=== PATIENT | male | born 1945 | race Caucasian/White ===

== ENCOUNTER 2021-06-08 12:46 | Inpatient (IN) | payer MEDICARE ==
[2021-06-08] MEDS ORDERED: ACETAMINOPHEN TAB 500 MG TAB PO STA (14:25)
[2021-06-08] MEDS ORDERED: SODIUM CHLORIDE 0.9% 1,000 ML IV STA (14:28)
--- NOTE | 2021-06-08 14:36 | ED ---
General Adult HPI - General Source: patient, RN notes reviewed Mode of arrival: wheelchair Limitations: no limitations <Candace Perez - Last Filed: 06/08/21 20:19> <Paty Diggs - Last Filed: 06/15/21 01:23> - General Chief complaint: Shortness of Breath Stated complaint: Covid +, low oxygen level Time Seen by Provider: 06/08/21 14:15 - History of Present Illness Initial comments: 75-year-old male presents to the emergency department accompanied by his spouse for evaluation of fever, cough, and fatigue for the past week. Spouse states their entire household has had Covid this past month. Patient is not vaccinated and has not been tested. States he did not take anything to treat his fever prior to arrival. Reports increasing shortness of breath with activity. Also complains of decreased appetite and mild headache. Denies chest pain, abdominal pain, nausea, vomiting, diarrhea, dysuria, and hematuria. (Candace Perez) - Related Data Home Medications Medication Instructions Recorded Confirmed Ibuprofen [Motrin Ib] 800 mg PO Q8H PRN 06/08/21 06/08/21 Previous Rx's Medication Instructions Recorded Albuterol Inhaler [Ventolin Hfa 2 puff INHALATION RT-QID #1 gm 06/13/21 Inhaler] Ascorbic Acid [Vitamin C] 500 mg PO BID #60 tab 06/13/21 Budesonide/Formoterol Fumarate 1 puff INHALATION BID #10.2 gm 06/13/21 [Symbicort 160-4.5 Mcg Inhaler] Cholecalciferol [Vitamin D3 (25 100 mcg PO DAILY #120 tablet 06/13/21 Mcg = 1000 Iu)] Zinc Sulfate [Orazinc] 220 mg PO DAILY #30 cap 06/13/21 predniSONE 10 mg PO DAILY #30 tab 06/13/21 Allergies Allergy/AdvReac Type Severity Reaction Status Date / Time bee venom protein (honey bee) Allergy Anaphylaxis Verified 06/08/21 15:54 Penicillins Allergy Rash/Hives Verified 06/08/21 15:54 Review of Systems ROS Other: All systems not noted in ROS Statement are negative. <Candace Perez - Last Filed: 06/08/21 20:19> ROS Other: All systems not noted in ROS Statement are negative. <Paty Diggs - Last Filed: 06/15/21 01:23> ROS Statement: Those systems with pertinent positive or pertinent negative responses have been documented in the HPI. Past Medical History Past Medical History: Diabetes Mellitus History of Any Multi-Drug Resistant Organisms: None Reported Past Surgical History: No Surgical Hx Reported Past Psychological History: No Psychological Hx Reported Smoking Status: Never smoker Past Alcohol Use History: None Reported Past Drug Use History: None Reported <AnaCandace - Last Filed: 06/08/21 20:19> General Exam Limitations: no limitations General appearance: alert, other (Well-developed, well-nourished male presents to the emergency emergency Department in moderate distress. Initial temperature 1-1.1, recheck 102.0, pulse 103, respirations 20, blood pressure 149/79, pulse ox 92% on room air, placed on 2 L improved to 94%.) Eye exam: Present: normal appearance, PERRL, EOMI. Absent: scleral icterus, conjunctival injection, periorbital swelling ENT exam: Present: mucous membranes dry, TM's normal bilaterally Neck exam: Present: normal inspection. Absent: tenderness, meningismus, lymphadenopathy Respiratory exam: Present: normal lung sounds bilaterally. Absent: respiratory distress, wheezes, rales, rhonchi, stridor Cardiovascular Exam: Present: regular rate, tachycardia, normal heart sounds GI/Abdominal exam: Present: soft, normal bowel sounds. Absent: distended, tenderness, guarding, rebound, rigid Extremities exam: Present: normal inspection, full ROM, normal capillary refill. Absent: tenderness, pedal edema, joint swelling, calf tenderness Neurological exam: Present: alert, oriented X3 Psychiatric exam: Present: flat affect Skin exam: Present: dry, intact, other (Skin very warm to touch and face is flus hed) <ChaijasperCandace - Last Filed: 06/08/21 20:19> Course <Candace Perez - Last Filed: 06/08/21 20:19> Vital Signs 06/08/21 06/08/21 06/08/21 12:57 15:22 16:09 Temperature 101.1 F H 100.5 F H Pulse Rate 103 H 87 Pulse Rate [ 105 H Electronic Induction Hardener ] Pulse Rate [ Pulse Oximetery ] Respiratory 20 20 20 Rate Blood Pressure 149/79 120/69 Blood Pressure [Left Arm] O2 Sat by Pulse 92 L 95 Oximetry 06/08/21 06/08/21 06/08/21 20:00 21:09 21:12 Temperature Pulse Rate 92 92 Pulse Rate [ 126 H Electronic Induction Hardener ] Pulse Rate [ Pulse Oximetery ] Respiratory 18 18 18 Rate Blood Pressure 127/88 130/70 Blood Pressure [Left Arm] O2 Sat by Pulse 98 96 Oximetry 06/08/21 06/08/21 06/08/21 21:53 21:57 22:00 Temperature 98.6 F Pulse Rate 84 Pulse Rate [ 100 126 H Electronic Induction Hardener ] Pulse Rate [ Pulse Oximetery ] Respiratory 18 Rate Blood Pressure 135/71 Blood Pressure 135/71 159/91 [Left Arm] O2 Sat by Pulse 95 94 L 95 Oximetry 06/09/21 06/09/21 06/09/21 00:41 09:03 09:30 Temperature Pulse Rate 96 Pulse Rate [ 88 Electronic Induction Hardener ] Pulse Rate [ Pulse Oximetery ] Respiratory 18 20 Rate Blood Pressure 135/76 Blood Pressure 110/70 [Left Arm] O2 Sat by Pulse 97 94 L 94 L Oximetry 06/09/21 06/09/21 06/09/21 12:56 14:00 18:00 Temperature Pulse Rate Pulse Rate [ Electronic Induction Hardener ] Pulse Rate [ 93 Pulse Oximetery ] Respiratory 18 Rate Blood Pressure Blood Pressure 138/80 [Left Arm] O2 Sat by Pulse 93 L 93 L 93 L Oximetry 06/09/21 06/09/21 20:00 20:47 Temperature Pulse Rate 95 Pulse Rate [ Electronic Induction Hardener ] Pulse Rate [ 80 Pulse Oximetery ] Respiratory 18 18 Rate Blood Pressure 145/73 Blood Pressure [Left Arm] O2 Sat by Pulse 92 L Oximetry - Reevaluation(s) Reevaluation #1: 06/08/21 15:00 Oral temp 101.2. Patient denies difficulty breathing or shortness of breath, but continues to feel fatigued and is lacking appetite. Oxygen at 2 L via nasal cannula required to maintain sat above 93%. 06/08/21 16:18 Discussed plan of care with patient and spouse, they are agreeable to, and prefer, admission. 06/08/21 16:[address] Salinas who agrees to accept admission of this patient. (Candace Perez) Medical Decision Making - Lab Data Result diagrams: 06/08/21 14:55 06/08/21 14:55 - EKG Data EKG shows normal: sinus rhythm Rate: normal - Radiology Data Radiology results: report reviewed, image reviewed <Candace Perez - Last Filed: 06/08/21 20:19> - Lab Data Result diagrams: 06/09/21 07:07 06/09/21 07:07 <Paty Diggs - Last Filed: 06/15/21 01:23> - Medical Decision Making 75-year-old male presents to the emergency department for evaluation of fever, cough, and fatigue post-covid exposure. Upon exam, patient is ill-appearing and requires 2 L of oxygen to sustain saturation above 93%. Patient is febrile and fatigued; he is unvaccinated. Patient was given Tylenol for fever and IV fluids for hydration; Decadron and albuterol inhaler also administered the emergency department with mild improvement. Laboratory studies were reviewed. Covid test was positive. Chest x-ray shows multifocal and confluent mid to lower lung opacities consistent with COVID-19 infection are present. Results were reviewed with patient and spouse; discussed plan of care including admission versus discharge home. Patient and spouse agree to admission. This patient's case was discussed with my attending Dr. Diggs. Spoke with Dr. Salinas who agrees to accept this patient. (Candace Perez) I was available for consultation in the emergency department. The history and physical exam were done by the midlevel provider. I was consulted for this patients care. I reviewed the case with the midlevel provider and based on their presentation of the patient, I agree with the assessment, medical decision making and plan of care as documented. Chart was dictated using [employer] dictation software. Attempts were made to correct any dictation errors however some typographical errors may persist. (Paty Rogers) - Lab Data Lab Results 06/08/21 06/08/21 06/08/21 Range/Units 14:55 14:55 14:55 WBC 2.8 L (3.8-10.6) k/uL RBC 5.68 (4.30-5.90) m/uL Hgb 16.3 (13.0-17.5) gm/dL Hct 48.3 (39.0-53.0) % MCV 85.0 (80.0-100.0) fL MCH 28.7 (25.0-35.0) pg MCHC 33.8 (31.0-37.0) g/dL RDW 13.0 (11.5-15.5) % Plt Count 142 L (150-450) k/uL MPV 7.6 Neutrophils % 70 % Lymphocytes % 20 % Monocytes % 7 % Eosinophils % 0 % Basophils % 1 % Neutrophils # 2.0 (1.3-7.7) k/uL Lymphocytes # 0.6 L (1.0-4.8) k/uL Monocytes # 0.2 (0-1.0) k/uL Eosinophils # 0.0 (0-0.7) k/uL Basophils # 0.0 (0-0.2) k/uL PT 10.4 (9.0-12.0) sec INR 1.0 (<1.2) APTT 27.3 (22.0-30.0) sec Sodium 133 L (137-145) mmol/L Potassium 4.4 (3.5-5.1) mmol/L Chloride 99 (98-107) mmol/L Carbon Dioxide 24 (22-30) mmol/L Anion Gap 10 mmol/L BUN 20 (9-20) mg/dL Creatinine 0.98 (0.66-1.25) mg/dL Est GFR (CKD-EPI)AfAm 89 (>60 ml/min/1.73 sqM) Est GFR (CKD-EPI)NonAf 77 (>60 ml/min/1.73 sqM) Glucose 115 H (74-99) mg/dL Plasma Lactic Acid Rosendo (0.7-2.0) mmol/L Calcium 8.8 (8.4-10.2) mg/dL Magnesium 2.2 (1.6-2.3) mg/dL Total Bilirubin 1.2 (0.2-1.3) mg/dL AST 53 (17-59) U/L ALT 45 (4-49) U/L Alkaline Phosphatase 61 (38-126) U/L Troponin I (0.000-0.034) ng/mL Total Protein 6.6 (6.3-8.2) g/dL Albumin 3.7 (3.5-5.0) g/dL Coronavirus (PCR) (Not Detectd) 06/08/21 06/08/2121 Range/Units 14:55 14:55 14:55 WBC (3.8-10.6) k/uL RBC (4.30-5.90) m/uL Hgb (13.0-17.5) gm/dL Hct (39.0-53.0) % MCV (80.0-100.0) fL MCH (25.0-35.0) pg MCHC (31.0-37.0) g/dL RDW (11.5-15.5) % Plt Count (150-450) k/uL MPV Neutrophils % % Lymphocytes % % Monocytes % % Eosinophils % % Basophils % % Neutrophils # (1.3-7.7) k/uL Lymphocytes # (1.0-4.8) k/uL Monocytes # (0-1.0) k/uL Eosinophils # (0-0.7) k/uL Basophils # (0-0.2) k/uL PT (9.0-12.0) sec INR (<1.2) APTT (22.0-30.0) sec Sodium (137-145) mmol/L Potassium (3.5-5.1) mmol/L Chloride (98-107) mmol/L Carbon Dioxide (22-30) mmol/L Anion Gap mmol/L BUN (9-20) mg/dL Creatinine (0.66-1.25) mg/dL Est GFR (CKD-EPI)AfAm (>60 ml/min/1.73 sqM) Est GFR (CKD-EPI)NonAf (>60 ml/min/1.73 sqM) Glucose (74-99) mg/dL Plasma Lactic Acid Rosendo 1.7 (0.7-2.0) mmol/L Calcium (8.4-10.2) mg/dL Magnesium (1.6-2.3) mg/dL Total Bilirubin (0.2-1.3) mg/dL AST (17-59) U/L ALT (4-49) U/L Alkaline Phosphatase (38-126) U/L Troponin I 0.019 (0.000-0.034) ng/mL Total Protein (6.3-8.2) g/dL Albumin (3.5-5.0) g/dL Coronavirus (PCR) Detected A (Not Detectd) - EKG Data EKG Comments: EKG is obtained at 1451 and shows normal sinus rhythm with left axis deviation. Ventricular rate 96, NC interval 146, QRS duration 84, QT/QTC 354/447. (Candace Perez) - Radiology Data Chest x-ray was obtained. Report was reviewed in its entirety. Impression per Dr. Goodrich shows multifocal and confluent mid to lower lung opacities consistent with COVID-19 infection are present. (Candace Perez) Disposition Decision Date: 06/08/21 Decision Time: 16:25 <Candace Perez - Last Filed: 06/08/21 20:19> <Paty Diggs - Last Filed: 06/15/21 01:23> Clinical Impression: COVID-19, Fever, Hypoxia Disposition: ADMITTED IP TO THIS HOSP
[2021-06-08 15:23] LABS: Basophils % (A) 1 %; Eosinophils % (A) 0 %; HCT 48.3 % (39.0-53.0); HGB 16.3 gm/dL (13.0-17.5); Lymphocytes # (A) 0.6 k/uL (1.0-4.8); Lymphocytes % (A) 20 %; MCH 28.7 pg (25.0-35.0); MCHC 33.8 g/dL (31.0-37.0); Mean Platelet Volume 7.6; Monocytes # (A) 0.2 k/uL (0-1.0); Monocytes % (A) 7 %; Neutrophils % (A) 70 %; Platelet Count 142 k/uL (150-450); RBC 5.68 m/uL (4.30-5.90); WBC 2.8 k/uL (3.8-10.6)
--- NOTE | 2021-06-08 15:29 | XR ---
EXAMINATION TYPE: XR chest 1V portable DATE OF EXAM: 06/08/2021 COMPARISON: NONE HISTORY: Cough, weakness, and hypoxia. TECHNIQUE: Single AP portable frontal upright view of the chest is obtained. FINDINGS: Patient is rotated to the left. There are multifocal and confluent opacities in the mid to lower lungs bilaterally. The cardiac silhouette size is upper limits of normal. The osseous struct ures are demineralized. IMPRESSION: Multifocal and confluent mid to lower lung opacities consistent with covid-19 infection a re present.
[2021-06-08 15:32] LABS: Albumin 3.7 g/dL (3.5-5.0); Calcium 8.8 mg/dL (8.4-10.2); Magnesium 2.2 mg/dL (1.6-2.3); Potassium 4.4 mmol/L (3.5-5.1); Total Bilirubin 1.2 mg/dL (0.2-1.3); Total Protein 6.6 g/dL (6.3-8.2)
[2021-06-08 15:38] LABS: Partial Thromboplastin Time 27.3 sec (22.0-30.0); Prothrombin Time 10.4 sec (9.0-12.0)
[2021-06-08] MEDS ORDERED: ALBUTEROL HFA INHALER INHALATION STA (16:17)
[2021-06-08] MEDS ORDERED: DEXAMETHASONE SOD PHOSPHATE 10 MG/ML 1 ML VIAL IVP STA (16:17)
[2021-06-08] MEDS ORDERED: ACETAMINOPHEN TAB 325 MG TAB PO PRN (16:25)
[2021-06-08] MEDS ORDERED: IBUPROFEN 400 MG TAB PO PRN (16:25)
[2021-06-08] MEDS ORDERED: SODIUM CHLORIDE 0.9% 1,000 ML IV SCH (16:30)
[2021-06-08] MEDS ORDERED: MAG HYDROX/AL HYDROX/SIMETH 30 ML CUP PO PRN (17:02)
[2021-06-08] MEDS ORDERED: CALCIUM CARBONATE 500 MG CHEWABLE PO PRN (17:02)
[2021-06-08] MEDS ORDERED: NALOXONE 0.4 MG/ML 1 ML VIAL IV PRN (17:02)
[2021-06-08] MEDS ORDERED: LOPERAMIDE 2 MG CAP PO PRN (17:02)
[2021-06-08] MEDS ORDERED: ONDANSETRON 4 MG/2 ML VIAL IVP PRN (17:02)
[2021-06-08] MEDS ORDERED: LACTULOSE 20 GM/30 ML CUP PO PRN (17:02)
[2021-06-08] MEDS ORDERED: ALPRAZolam 0.25 MG TAB PO PRN (17:02)
[2021-06-08] MEDS ORDERED: DEXTROSE 5%-0.45% NACL 1,000 ML IV ONE (17:13)
--- NOTE | 2021-06-08 17:14 | P.HPIM ---
History of Present Illness H&P Date: 06/08/21 Chief Complaint: Short of breath This is a pleasant 75-year-old patient who follows with Dr. Berg. Patient a prior history of diabetes hypertension as lost over 100 pounds. Doesn't take any more medications. Patient's had COVID and recovered about 20 days ago. Patient for 10 days started having nausea cough slight phlegm. Fevers. No headache no diarrhea. Denies body ache. Poor appetite. Loss of smell and taste. Patient become so weak and started to fall. Very poor appetite. She has not taken the COVID vaccine. Review of systems: GEN.: Tired, fever poor appetite EYES: None HEENT: None NECK: None RESPIRATORY: As above CARDIOVASCULAR: None GASTROINTESTINAL: None GENITOURINARY: None MUSCULOSKELETAL: Muscle aches LYMPHATICS: None HEMATOLOGICAL: None PSYCHIATRY: None NEUROLOGICAL: None Past medical history to include: Diabetes, hypertension, obesity. Corrected Social history: Patient smoked for about 25 years stopped about 30 years ago. 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 Family history: Reviewed, noncontributory to presentation Physical examination: VITAL SIGNS: 101.1, 103, 20, 1 49 x 79, 92% room air on presentation GENERAL: BMI 28.9, laying in bed, awake, tired. EYES: Pupils equal. Conjunctiva normal. HEENT: External appearance of nose and ears normal, oral cavity grossly normal. NECK: JVD not raised; masses not palpable. HEART: First and second heart sounds are normal; no edema. LUNGS: Respiratory rate increased, decreased breaths on some coarse crackles. ABDOMEN: Soft, nontender, liver spleen not palpable, no masses palpable. PSYCH: [Alert and oriented x3; mood and affect tired l. NEUROLOGICAL: Cranial nerves grossly intact; no facial asymmetry, power and sensation grossly intact. LYMPHATICS: No lymph nodes palpable in the axilla and neck INVESTIGATIONS, reviewed in the clinical context: White count 2.8 hemoglobin 16.3 platelets 142 lymphocytes 0.6 sodium 133 potassi um 4.4 BUN 20 creatinine 0.98 Coronavirus [PCR]: Detected EKG tracing personally reviewed by me-normal sinus rhythm, 96 Chest x-ray film personally reviewed by me-[portable, poor inspiration]: Possibl e infiltrates Assessment and plan: -Acute COVID 19 pneumonitis. Symptoms the present from about 10 days. Nonvaccinated against COVID 19. Patient's at the COVID 19. Pulse ox 92% room air. Dexamethasone 6 mg, vitamin C, vitamin D, zinc. Subcu Lovenox. -Sepsis from COVID 19 pneumonitis IV fluids -Acute medical debility/asthenia from decreased oral intake and dehydration Fall precautions. IV fluids. -Bicytopenia from COVID 19 pneumonitis [low white count, low platelets] Follow CBC -Anosmia, Ageusia from COVID 19 Full liquid diet -Dehydration from decreased fluid intake IV fluids Dexamethasone, vitamin C, vitamin D, zinc. Subcu Lovenox. D5 0.45 at 150 mL an hour. Care was discussed with the patient and at the bedside. Given the complexity and severity of patient's condition expect the patient to be in the hospital at least for 2 overnights Past Medical History Past Medical History: Diabetes Mellitus History of Any Multi-Drug Resistant Organisms: None Reported Past Surgical History: No Surgical Hx Reported Past Psychological History: No Psychological Hx Reported Smoking Status: Never smoker Past Alcohol Use History: None Reported Past Drug Use History: None Reported Medications and Allergies Home Medications Medication Instructions Recorded Confirmed Type Acetaminophen Tab [Tylenol Tab] 1,000 mg PO Q6HR PRN 06/08/21 06/08/21 History Ibuprofen [Motrin Ib] 800 mg PO Q8H PRN 06/08/21 06/08/21 History Allergies Allergy/AdvReac Type Severity Reaction Status Date / Time bee venom protein (honey bee) Allergy Anaphylaxis Verified 06/08/21 15:54 Penicillins Allergy Rash/Hives Verified 06/08/21 15:54 Physical Exam Vitals: Vital Signs Temp Pulse Pulse Resp BP Pulse Ox 06/08/21 16:09 100.5 F H 87 20 120/69 95 06/08/21 15:22 105 H 20 06/08/21 12:57 101.1 F H 103 H 20 149/79 92 L Intake and Output 06/08/21 06/08/21 06/08/21 06:59 14:59 22:59 Other: Weight 86.183 kg Results CBC & Chem 7: 06/08/21 14:55 06/08/21 14:55 Labs: Abnormal Lab Results - Last 24 Hours (Table) 06/08/21 06/08/21 06/08/21 Range/Units 14:55 14:55 14:55 WBC 2.8 L (3.8-10.6) k/uL Plt Count 142 L (150-450) k/uL Lymphocytes # 0.6 L (1.0-4.8) k/uL Sodium 133 L (137-145) mmol/L Glucose 115 H (74-99) mg/dL Coronavirus (PCR) Detected A (Not Detectd)
[2021-06-08] MEDS: CHOLECALCIFEROL 25 MCG (1000 IU) TABLET PO SCH (19:46)
[2021-06-08] MEDS ORDERED: MELATONIN 3 MG TABLET PO PRN (21:00)
[2021-06-08] MEDS: ALBUTEROL HFA INHALER INHALATION SCH (21:27)
[2021-06-09 07:41] LABS: African American GFR (CKD) >90 (>60 ml/min/1.73 sqM); Anion Gap 10 mmol/L; Blood Urea Nitrogen 18 mg/dL (9-20); C Reactive Protein 7.5 mg/dL (<1.0); Carbon Dioxide 25 mmol/L (22-30); Chloride 101 mmol/L (98-107); Glucose 165 mg/dL (74-99); Non-African American GFR(CKD) 87 (>60 ml/min/1.73 sqM); Potassium 4.5 mmol/L (3.5-5.1); Sodium 136 mmol/L (137-145)
[2021-06-09] MEDS ORDERED: DEXAMETHASONE SOD PHOSPHATE 10 MG/ML 1 ML VIAL IVP SCH (09:00)
[2021-06-09] MEDS: ALBUTEROL HFA INHALER INHALATION SCH ×4 (09:02→19:45)
[2021-06-09] MEDS: CHOLECALCIFEROL 25 MCG (1000 IU) TABLET PO SCH (09:27)
[2021-06-09] MEDS: dexAMETHasone 2 MG TAB PO SCH (09:27)
[2021-06-09 10:36] LABS: HCT 51.2 % (39.6-50.0); MCH 28.4 pg (27.0-32.0); MCHC 33.2 g/dL (32.0-37.0); MCV 85.6 fL (80.0-97.0); Mean Platelet Volume 10.5 fL (9.5-12.2); Platelet Count 161 X 10*3/uL (140-440); RBC 5.98 X 10*6/uL (4.40-5.60); RDW 13.2 % (11.5-14.5); WBC 2.66 X 10*3/uL (4.50-10.00)
[2021-06-09 14:48] LABS: Basophils # (A) 0.01 X 10*3/uL (0.00-0.10); Basophils % (A) 0.4 %; Eosinophils # (A) 0 X 10*3/uL (0.04-0.35); Eosinophils % (A) 0 %; Lymphocytes # (A) 0.48 X 10*3/uL (0.90-5.00); Monocytes # (A) 0.14 X 10*3/uL (0.20-1.00); Monocytes % (A) 5.3 %; Neutrophils # (A) 2.01 X 10*3/uL (1.80-7.70); Neutrophils % (A) 75.5 %
--- NOTE | 2021-06-09 15:14 | P.PN ---
Progress Note - Text Progress Note Date: 06/09/21 Chief Complaint: Short of breath This is a pleasant 75-year-old patient who follows with Dr. Berg. Patient a prior history of diabetes hypertension as lost over 100 pounds. Doesn't take any more medications. Patient's had COVID and recovered about 20 days ago. Patient for 10 days started having nausea cough slight phlegm. Fevers. No headache no diarrhea. Denies body ache. Poor appetite. Loss of smell and taste. Patient become so weak and started to fall. Very poor appetite. She has not taken the COVID vaccine. Admitted with acute COVID 19 pneumonitis, dehydration, loss of smell and taste, acute medical debility. Started on dexamethasone. 06/09/2021: Decreased appetite. Poor taste. Tired. Cough. Short of breath. Laying in bed. Review of systems: Was done for constitutional, cardiovascular, GI, pulmonary. relevant finding as above Active Medications Acetaminophen (Acetaminophen Tab 325 Mg Tab) 650 mg PO Q6HR PRN PRN Reason: Mild Pain or Fever > 100.5 Al Hydroxide/Mg Hydroxide (Mag Hydrox/Al Hydrox/Simeth 30 Ml Cup) 15 ml PO Q6HR PRN PRN Reason: Indigestion Albuterol Sulfate (Albuterol Hfa Inhaler) 2 puff INHALATION RT-QID [facility] Last Admin: 06/09/21 12:34 Dose: 2 puff Documented by: Alprazolam (Alprazolam 0.25 Mg Tab) 0.25 mg PO Q6HR PRN PRN Reason: Anxiety Calcium Carbonate/Glycine (Calcium Carbonate 500 Mg Chewable) 1,000 mg PO Q4HR PRN PRN Reason: Dyspepsia Cholecalciferol (Cholecalciferol 25 Mcg (1000 Iu) Tablet) 100 mcg PO DAILY [facility] Last Admin: 06/09/21 09:27 Dose: 100 mcg Documented by: Dexamethasone (Dexamethasone 2 Mg Tab) 6 mg PO DAILY [facility] Last Admin: 06/09/21 09:27 Dose: 6 mg Documented by: Ibuprofen (Ibuprofen 400 Mg Tab) 400 mg PO Q6HR PRN PRN Reason: Mild Pain or Fever > 100.5 Lactulose (Lactulose 20 Gm/30 Ml Cup) 20 gm PO DAILY PRN PRN Reason: Constipation Loperamide HCl (Loperamide 2 Mg Cap) 2 mg PO Q2HR PRN PRN Reason: Loose Stool Melatonin (Melatonin 3 Mg Tablet) 3 mg PO HS PRN PRN Reason: Insomnia Naloxone HCl (Naloxone 0.4 Mg/Ml 1 Ml Vial) 0.2 mg IV Q2M PRN PRN Reason: Opioid Reversal Ondansetron HCl (Ondansetron 4 Mg/2 Ml Vial) 4 mg IVP Q8HR PRN PRN Reason: Nausea And Vomiting Past medical history to include: Diabetes, hypertension, obesity. Corrected Social history: Patient smoked for about 25 years stopped about 30 years ago. 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 Family history: Reviewed, noncontributory to presentation Physical examination: VITAL SIGNS: T-max 100.5, 93, 18, 1 38 x 80, 93% on 2 L GENERAL: , laying in bed, awake, tired. LUNGS: Respiratory rate increased, PSYCH: Alert and oriented x3; mood and affect tired . NEUROLOGICAL: Cranial nerves grossly intact; no facial asymmetry, moving all 4 limbs [facility] pulmonary and nursing INVESTIGATIONS, reviewed in the clinical context: June 09: WBC 2.6 hemoglobin 17 platelets 161 potassium 4.5 creatinine 0.83 CRP 7.5 procalcitonin 0.13 White count 2.8 hemoglobin 16.3 platelets 142 lymphocytes 0.6 sodium 133 po tassium 4.4 BUN 20 creatinine 0.98 Coronavirus [PCR]: Detected EKG tracing personally reviewed by me-normal sinus rhythm, 96 Chest x-ray film personally reviewed by me-[portable, poor inspiration]: Po ssible infiltrates Assessment and plan: -Acute COVID 19 pneumonitis. Symptoms the present from about 10 days prior to presentation. Nonvaccinated against COVID 19. : Slow to respond Dexamethasone 6 mg, vitamin C, vitamin D, zinc. Subcu Lovenox. -Acute hypoxic respiratory failure from COVID 19 pneumonitis: Slow to respond On 3 L nasal cannula -Sepsis from COVID 19 pneumonitis IV fluids -Acute medical debility/asthenia from decreased oral intake and dehydration Fall precautions. IV fluids. -Bicytopenia from COVID 19 pneumonitis [low white count, low platelets] Follow CBC -Anosmia, Ageusia from COVID 19 Full liquid diet -Dehydration from decreased fluid intake IV fluids Dexamethasone, vitamin C, vitamin D, zinc. Subcu Lovenox. IV fluids. Pulmonary consult.
--- NOTE | 2021-06-09 15:36 | P.CNPUL ---
History of Present Illness Consult date: 06/09/21 Reason for consult: hypoxemia, pneumonia History of present illness: 75-year-old male patient, hospitalized for COVID 19 related pneumonia. The patient started having symptoms approximately 10 days ago and he had some cough and slight shortness of breath in addition to nausea. He was having diminished appetite and he lost his sense of taste and smell. He became became progressively more weak and for that reason the end up coming to the hospital. The patient is a unvaccinated individual. In the ED, the patient had a temperature of 101.1 and the initial pulse ox was 92%. The patient was placed on 2 L of oxygen by nasal cannula to maintain a saturation of 93%. He was given IV fluids and Tylenol. He was also started on Decadron. COVID 19 testing was positive in the emergency department. The patient had a chest x-ray that showed multifocal and confluent mid and lower lobe pulmonary opacities consistent with COVID 19 related pneumonia. The patient was hospitalized accordingly. The patient's white cell count is at 2.6 with a hemoglobin of 17 and a lymphocyte count of 0.48. The blood work and electrodes are all within normal limits. The CRP level is at 7.5, LDH is pending, troponins are negative, pro-calcitonin level is at 0.12. Review of Systems Constitutional: Reports fatigue, Reports fever, Reports lethargy, Reports weakness Eyes: denies as per HPI, denies blurred vision, denies bulging eye, denies decreased vision, denies diplopia, denies discharge, denies dry eye, denies irritation, denies itching, denies pain, denies photophobia, denies loss of peripheral vision, denies loss of vision, denies tunnel vision/blind spots Ears: deny: decreased hearing, ear discharge, earache, tinnitus Breasts: absent: as per HPI, gynecomastia Cardiovascular: Reports as per HPI Respiratory: Reports cough, Reports dyspnea Gastrointestinal: Reports as per HPI Genitourinary: Reports as per HPI Musculoskeletal: Reports as per HPI Musculoskeletal: absent: ankle pain, ankle stiffness, ankle swelling, as per HPI, elbow pain, elbow stiffness, elbow swelling, foot pain, foot stiffness, foot swelling, hand pain, hand stiffness, hand swelling, hip pain, hip stif fness, hip swelling, knee pain, knee stiffness, knee swelling, shoulder pain, shoulder stiffness, shoulder swelling, wrist pain, wrist stiffness, wrist swelling Integumentary: Reports as per HPI Neurological: Reports as per HPI, Reports weakness Psychiatric: Reports as per HPI Endocrine: Reports as per HPI Hematologic/Lymphatic: Reports as per HPI Allergic/Immunologic: Reports as per HPI Past Medical History Past Medical History: Diabetes Mellitus, Hyperlipidemia, Hypertension, Osteoarthritis (OA) History of Any Multi-Drug Resistant Organisms: None Reported Past Surgical History: Cholecystectomy Smoking Status: Never smoker Medications and Allergies Home Medications Medication Instructions Recorded Confirmed Type Acetaminophen Tab [Tylenol Tab] 1,000 mg PO Q6HR PRN 06/08/21 06/08/21 History Ibuprofen [Motrin Ib] 800 mg PO Q8H PRN 06/08/21 06/08/21 History Allergies Allergy/AdvReac Type Severity Reaction Status Date / Time bee venom protein (honey bee) Allergy Anaphylaxis Verified 06/08/21 15:54 Penicillins Allergy Rash/Hives Verified 06/08/21 15:54 Physical Exam Vitals: Vital Signs Temp Pulse Pulse Pulse Resp BP BP 06/09/21 14:00 93 18 138/80 06/09/21 12:56 06/09/21 09:30 96 20 135/76 06/09/21 09:03 06/09/21 00:41 88 18 110/70 06/08/21 22:00 126 H 159/91 06/08/21 21:57 98.6 F 84 18 135/71 06/08/21 21:53 100 135/71 06/08/21 21:12 92 18 130/70 06/08/21 21:09 92 18 127/88 06/08/21 20:00 126 H 18 06/08/21 16:09 100.5 F H 87 20 120/69 Pulse Ox 06/09/21 14:00 93 L 06/09/21 12:56 93 L 06/09/21 09:30 94 L 06/09/21 09:03 94 L 06/09/21 00:41 97 06/08/21 22:00 95 06/08/21 21:57 94 L 06/08/21 21:53 95 06/08/21 21:12 96 06/08/21 21:09 98 06/08/21 20:00 06/08/21 16:09 95 Intake and Output 11/07/1806/09/21 06/09/21 06:59 14:59 22:59 Intake Total 500 Balance 500 Intake: Intake, IV Titration 500 Amount Dextrose 5%-0.45% NaCl 1, 500 000 ml @ 150 mls/hr IV . Q6H40M [facility] Rx#:[id number] Other: Weight 86.183 kg The patient appeared well nourished and normally developed.The breathing is nonlabored at this point in time Vital signs as documented. Head exam is unremarkable. No scleral icterus or corneal arcus noted. Neck is without jugular venous distension, thyromegaly, or carotid bruits. Carotid upstrokes are brisk bilaterally. Lungs are reveal crackles in the mid and lower lung talbert bilaterally more so on the left lung base Cardiac exam reveals the PMI to be normally sized and situated. Rhythm is r egular. First and second heart sounds normal. No murmurs, rubs or gallops. Abdominal exam reveals normal bowel sounds, no masses, no organomegaly and no aortic enlargement. Extremities are nonedematous and both femoral and pedal pulses are normal. Examination of the skin revealed no evidence of significant rashes, suspicious appearing nevi or other concerning lesions. Neurologically, the patient is awake and alert and the patient does not have any focal neurological deficit. Cranial nerves are essentially intact. Results - Laboratory Findings CBC and BMP: 06/09/21 07:07 06/09/21 07:07 PT/INR, D-dimer PT 10.4 sec (9.0-12.0) 06/08/21 14:55 INR 1.0 (<1.2) 06/08/21 14:55 Abnormal lab findings: Abnormal Labs 06/08/21 06/08/21 06/08/21 14:55 14:55 14:55 WBC 2.8 L RBC Hct Plt Count 142 L Lymphocytes # 0.6 L Monocytes # Eosinophils # Sodium 133 L Glucose 115 H C-Reactive Protein Procalcitonin Coronavirus (PCR) Detected A 06/08/21 06/09/21 06/09/21 20:18 07:07 07:07 WBC RBC Hct Plt Count Lymphocytes # Monocytes # Eosinophils # Sodium 136 L Glucose 165 H C-Reactive Protein 7.5 H Procalcitonin 0.12 H 0.13 H Coronavirus (PCR) 06/09/21 07:07 WBC 2.66 L RBC 5.98 H Hct 51.2 H Plt Count Lymphocytes # 0.48 L Monocytes # 0.14 L Eosinophils # 0 L Sodium Glucose C-Reactive Protein Procalcitonin Coronavirus (PCR) - Diagnostic Findings Chest x-ray: image reviewed Assessment and Plan Plan: 1 acute COVID 19 related pneumonia in an 75-year-old male patient was currently unvaccinated presenting with past social symptoms, fever, generalized weakness and some shortness of breath and cough. 2 acute hypoxic respiratory failure currently on 2 L of oxygen to maintain a saturation above 90% 3 diabetes mellitus 4 hypertension 5 hyperlipidemia 6 acute febrile illness secondary to above 7 leukopenia7 leukopenia and lymphopenia, likely secondary to COVID 19 infection. Plan agree on Decadron 6 mg by mouth daily Titrate oxygen flow to maintain a saturation above 90% I really fluid hydration Check a d-dimer and put the patient on Lovenox for DVT prophylaxis a dose of 40 mg subcu daily basis Awaiting based on LDH level We'll continue to follow
[2021-06-09] MEDS: DEXTROSE 5%-0.45% NACL 1,000 ML IV SCH (20:46)
[2021-06-10] MEDS: DEXTROSE 5%-0.45% NACL 1,000 ML IV SCH ×3 (05:50→17:18)
[2021-06-10] MEDS: ENOXAPARIN 40 MG/0.4 ML SYRINGE SQ SCH (07:57)
[2021-06-10] MEDS: CHOLECALCIFEROL 25 MCG (1000 IU) TABLET PO SCH (07:57)
[2021-06-10] MEDS: dexAMETHasone 2 MG TAB PO SCH (07:57)
[2021-06-10] MEDS: ALBUTEROL HFA INHALER INHALATION SCH ×4 (08:28→19:58)
--- NOTE | 2021-06-10 11:58 | P.PN ---
Subjective Progress Note Date: 06/10/21 75-year-old male patient, hospitalized for COVID 19 related pneumonia. The patient started having symptoms approximately 10 days ago and he had some cough and slight shortness of breath in addition to nausea. He was having diminished appetite and he lost his sense of taste and smell. He became became progressively more weak and for that reason the end up coming to the hospital. The patient is a unvaccinated individual. In the ED, the patient had a temperature of 101.1 and the initial pulse ox was 92%. The patient was placed on 2 L of oxygen by nasal cannula to maintain a saturation of 93%. He was given IV fluids and Tylenol. He was also started on Decadron. COVID 19 testing was positive in the emergency department. The patient had a chest x-ray that showed multifocal and confluent mid and lower lobe pulmonary opacities consistent with COVID 19 related pneumonia. The patient was hospitalized accordingly. The patient's white cell count is at 2.6 with a hemoglobin of 17 and a lymphocyte count of 0.48. The blood work and electrodes are all within normal limits. The CRP level is at 7.5, LDH is pending, troponins are negative, pro-calcitonin level is at 0.12. On 06/10/2021, the patient is still on 2 L of oxygen by nasal cannula. His extensive and coarse crackles in the mid and lower lung talbert bilaterally. He was quite lethargic yesterday. This morning, he feels a bit more energetic. His overall very much fatigued and tired. Labs are still pending for now. His white cell count from yesterday was 2.66. D-dimer came back at 0.7. His pro- calcitonin level was at 0.13. He remains on Decadron. He is also on Lovenox for DVT prophylaxis. He is receiving D5 half-normal saline today to 125 mL an hour. No other significant events overnight. He is able to tolerate his diet. No nausea. No vomiting. No emesis. Objective - Vital Signs Vital signs: Vital Signs Temp 98.8 F 06/10/21 09:28 Pulse 89 06/10/21 09:28 Resp 18 06/10/21 09:28 BP 132/73 06/10/21 09:28 Pulse Ox 94 L 06/10/21 09:28 Intake & Output 06/09/21 06/10/21 06/10/21 18:59 06:59 18:59 Weight 86.183 kg Other: Voiding Method Toilet # Voids 2 - Exam The patient appeared well nourished and normally developed.The breathing is nonlabored at this point in time Vital signs as documented. Head exam is unremarkable. No scleral icterus or corneal arcus noted. Neck is without jugular venous distension, thyromegaly, or carotid bruits. Carotid upstrokes are brisk bilaterally. Lungs are reveal crackles in the mid and lower lung talbert bilaterally more so on the left lung base Cardiac exam reveals the PMI to be normally sized and situated. Rhythm is regular. First and second heart sounds normal. No murmurs, rubs or gallops. Abdominal exam reveals normal bowel sounds, no masses, no organomegaly and no aortic enlargement. Extremities are nonedematous and both femoral and pedal pulses are normal. Examination of the skin revealed no evidence of significant rashes, suspicious appearing nevi or other concerning lesions. Neurologically, the patient is awake and alert and the patient does not have any focal neurological deficit. Cranial nerves are essentially intact. - Labs CBC & Chem 7: 06/09/21 07:07 06/09/21 07:07 Labs: Abnormal Lab Results - Last 24 Hours (Table) 06/09/21 06/09/21 Range/Units 07:07 19:34 Lymphocytes # 0.48 L (0.90-5.00) X 10*3/uL Monocytes # 0.14 L (0.20-1.00) X 10*3/uL Eosinophils # 0 L (0.04-0.35) X 10*3/uL D-Dimer 0.71 H (<0.60) mg/L FEU Microbiology - Last 24 Hours (Table) 06/08/21 14:55 Blood Culture - Preliminary Blood No Growth after 24 hours 06/08/21 14:55 Blood Culture - Preliminary Blood No Growth after 24 hours Assessment and Plan Plan: 1 acute COVID 19 related pneumonia in an 75-year-old male patient was currently unvaccinated presenting with past social symptoms, fever, generalized weakness and some shortness of breath and cough. Oxygenation is stable. GI symptoms have settled compared to earlier. The patient is able to tolerate his diet. We'll continue with the same treatment for now. 2 acute hypoxic respiratory failure currently on 2 L of oxygen to maintain a saturation above 90% 3 diabetes mellitus 4 hypertension 5 hyperlipidemia 6 acute febrile illness secondary to above 7 leukopenia7 leukopenia and lymphopenia, likely secondary to COVID 19 infection. Plan agree on Decadron 6 mg by mouth daily Titrate oxygen flow to maintain a saturation above 90% Continue fluids The pro-calcitonin level is low Awaiting based on LDH level We'll continue to follow
--- NOTE | 2021-06-10 16:26 | P.PN ---
Progress Note - Text Progress Note Date: 06/10/21 Chief Complaint: Short of breath This is a pleasant 75-year-old patient who follows with Dr. Berg. Patient a prior history of diabetes hypertension as lost over 100 pounds. Doesn't take any more medications. Patient's had COVID and recovered about 20 days ago. Patient for 10 days started having nausea cough slight phlegm. Fevers. No headache no diarrhea. Denies body ache. Poor appetite. Loss of smell and taste. Patient become so weak and started to fall. Very poor appetite. She has not taken the COVID vaccine. Admitted with acute COVID 19 pneumonitis, dehydration, loss of smell and taste, acute medical debility. Started on dexamethasone. 06/09/2021: Decreased appetite. Poor taste. Tired. Cough. Short of breath. Laying in bed. 06/10/2021: Feeling a bit better. Tired. Eating some. Requesting Ensure. Sitting at the edge of the bed. Nasal cannula. Shortness of breath. Review of systems: Was done for constitutional, cardiovascular, GI, pulmonary. relevant finding as above Active Medications Acetaminophen (Acetaminophen Tab 325 Mg Tab) 650 mg PO Q6HR PRN PRN Reason: Mild Pain or Fever > 100.5 Al Hydroxide/Mg Hydroxide (Mag Hydrox/Al Hydrox/Simeth 30 Ml Cup) 15 ml PO Q6HR PRN PRN Reason: Indigestion Albuterol Sulfate (Albuterol Hfa Inhaler) 2 puff INHALATION RT-QID [facility] Last Admin: 06/10/21 15:30 Dose: 2 puff Documented by: Alprazolam (Alprazolam 0.25 Mg Tab) 0.25 mg PO Q6HR PRN PRN Reason: Anxiety Calcium Carbonate/Glycine (Calcium Carbonate 500 Mg Chewable) 1,000 mg PO Q4HR PRN PRN Reason: Dyspepsia Cholecalciferol (Cholecalciferol 25 Mcg (1000 Iu) Tablet) 100 mcg PO DAILY [facility] Last Admin: 06/10/21 07:57 Dose: 100 mcg Documented by: Dexamethasone (Dexamethasone 2 Mg Tab) 6 mg PO DAILY [facility] Last Admin: 06/10/21 07:57 Dose: 6 mg Documented by: Enoxaparin Sodium (Enoxaparin 40 Mg/0.4 Ml Syringe) 40 mg SQ DAILY [facility] Last Admin: 06/10/21 07:57 Dose: 40 mg Documented by: Dextrose/Sodium Chloride (Dextrose 5%-1/2ns Iv Soln) 1,000 mls @ 125 mls/hr IV .Q8H [facility] Last Admin: 06/10/21 07:58 Dose: Not Given Documented by: Ibuprofen (Ibuprofen 400 Mg Tab) 400 mg PO Q6HR PRN PRN Reason: Mild Pain or Fever > 100.5 Lactulose (Lactulose 20 Gm/30 Ml Cup) 20 gm PO DAILY PRN PRN Reason: Constipation Loperamide HCl (Loperamide 2 Mg Cap) 2 mg PO Q2HR PRN PRN Reason: Loose Stool Melatonin (Melatonin 3 Mg Tablet) 3 mg PO HS PRN PRN Reason: Insomnia Naloxone HCl (Naloxone 0.4 Mg/Ml 1 Ml Vial) 0.2 mg IV Q2M PRN PRN Reason: Opioid Reversal Ondansetron HCl (Ondansetron 4 Mg/2 Ml Vial) 4 mg IVP Q8HR PRN PRN Reason: Nausea And Vomiting Past medical history to include: Diabetes, hypertension, obesity. Corrected Social history: Patient smoked for about 25 years stopped about 30 years ago. 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 Family history: Reviewed, noncontributory to presentation Physical examination: VITAL SIGNS: 98.4, 91, 18, 1 28 x 72, 96% on 2 L GENERAL: , Sitting at the edge of the bed, awake, tired. LUNGS: Respiratory rate increased, PSYCH: Alert and oriented x3; mood and affect tired . NEUROLOGICAL: Cranial nerves grossly intact; no facial asymmetry, moving all 4 limbs Rest of the exam per pulmonary and nursing INVESTIGATIONS, reviewed in the clinical context: June 09: D-dimer 0.71 June 09: WBC 2.6 hemoglobin 17 platelets 161 potassium 4.5 creatinine 0.83 CRP 7.5 procalcitonin 0.13 White count 2.8 hemoglobin 16.3 platelets 142 lymphocytes 0.6 sodium 133 potassium 4.4 BUN 20 creatinine 0.98 Coronavirus [PCR]: Detected EKG tracing personally reviewed by me-normal sinus rhythm, 96 Chest x-ray film personally reviewed by me-[portable, poor inspiration]: Possible infiltrates Assessment and plan: -Acute COVID 19 pneumonitis. Symptoms the present from about 10 days prior to presentation. Nonvaccinated against COVID 19. : Slow to respond Dexamethasone 6 mg, vitamin C, vitamin D, zinc. Subcu Lovenox. -Acute hypoxic respiratory failure from COVID 19 pneumonitis: Slow to respond On 2 L nasal cannula -Sepsis from COVID 19 pneumonitis: Better IV fluids -Acute medical debility/asthenia from decreased oral intake and dehydration Fall precautions. IV fluids. -Bicytopenia from COVID 19 pneumonitis [low white count, low platelets] Follow CBC -Anosmia, Ageusia from COVID 19 Changed to CHOP diet. An Ensure. -Dehydration from decreased fluid intake IV fluids Dexamethasone, vitamin C, vitamin D, zinc. Subcu Lovenox. IV fluids. Advance diet to a chopped diet. An Ensure. Encouraged to use incentive spirometry. Advised to be up in a chair.
[2021-06-11] MEDS: DEXTROSE 5%-0.45% NACL 1,000 ML IV SCH ×2 (05:58→12:29)
[2021-06-11] MEDS: dexAMETHasone 2 MG TAB PO SCH (08:08)
[2021-06-11] MEDS: ENOXAPARIN 40 MG/0.4 ML SYRINGE SQ SCH (08:08)
[2021-06-11] MEDS: CHOLECALCIFEROL 25 MCG (1000 IU) TABLET PO SCH (08:08)
[2021-06-11] MEDS: ALBUTEROL HFA INHALER INHALATION SCH ×4 (09:00→19:33)
--- NOTE | 2021-06-11 11:17 | P.PN ---
Subjective Progress Note Date: 06/11/21 75-year-old male patient, hospitalized for COVID 19 related pneumonia. The patient started having symptoms approximately 10 days ago and he had some cough and slight shortness of breath in addition to nausea. He was having diminished appetite and he lost his sense of taste and smell. He became became progressively more weak and for that reason the end up coming to the hospital. The patient is a unvaccinated individual. In the ED, the patient had a temperature of 101.1 and the initial pulse ox was 92%. The patient was placed on 2 L of oxygen by nasal cannula to maintain a saturation of 93%. He was given IV fluids and Tylenol. He was also started on Decadron. COVID 19 testing was positive in the emergency department. The patient had a chest x-ray that showed multifocal and confluent mid and lower lobe pulmonary opacities consistent with COVID 19 related pneumonia. The patient was hospitalized accordingly. The patient's white cell count is at 2.6 with a hemoglobin of 17 and a lymphocyte count of 0.48. The blood work and electrodes are all within normal limits. The CRP level is at 7.5, LDH is pending, troponins are negative, pro-calcitonin level is at 0.12. On 06/10/2021, the patient is still on 2 L of oxygen by nasal cannula. His extensive and coarse crackles in the mid and lower lung talbert bilaterally. He was quite lethargic yesterday. This morning, he feels a bit more energetic. His overall very much fatigued and tired. Labs are still pending for now. His white cell count from yesterday was 2.66. D-dimer came back at 0.7. His pro- calcitonin level was at 0.13. He remains on Decadron. He is also on Lovenox for DVT prophylaxis. He is receiving D5 half-normal saline today to 125 mL an hour. No other significant events overnight. He is able to tolerate his diet. No nausea. No vomiting. No emesis. 2020, the patient remains on 2 L of oxygen by nasal cannula. The patient was Hospital as for COVID 19 early pneumonia. Symptoms started a previous 10 days prior to him coming into the hospital. For now, the patient has a d-dimer of 0.5. Rest of the inflammatory markers show a CRP level which is down to 3.4. LDH level is still pending for now. Pro-calcitonin level was at 0.1 times respectively. He is afebrile. He is hemodynamically stable on 2 L of oxygen with a pulse ox of 91%. White cell count was at a nonelevated at 2.6. Hemogl obin was at 17. His current treatment include a combination of Decadron this milligrams daily and Lovenox 40 mg subcu on a daily basis. Objective - Vital Signs Vital signs: Vital Signs Temp 98.5 F 06/11/21 09:19 Pulse 89 06/11/21 09:19 Resp 18 06/11/21 09:19 BP 143/69 06/11/21 09:19 Pulse Ox 91 L 06/11/21 09:19 Intake & Output 06/10/21 06/11/21 06/11/21 18:59 06:59 18:59 Intake Total 900 Balance 900 Intake: Intake, IV Titration 900 Amount Dextrose 5%-0.45% NaCl 1, 900 000 ml @ 75 mls/hr IV . [id number] [facility] [place] Rx#:[id number] Other: # Voids 3 - Exam The patient appeared well nourished and normally developed.The breathing is nonlabored at this point in time Vital signs as documented. Head exam is unremarkable. No scleral icterus or corneal arcus noted. Neck is without jugular venous distension, thyromegaly, or carotid bruits. Carotid upstrokes are brisk bilaterally. Lungs are reveal crackles in the mid and lower lung talbert bilaterally more so on the left lung base Cardiac exam reveals the PMI to be normally sized and situated. Rhythm is regular. First and second heart sounds normal. No murmurs, rubs or gallops. Abdominal exam reveals normal bowel sounds, no masses, no organomegaly and no aortic enlargement. Extremities are nonedematous and both femoral and pedal pulses are normal. Examination of the skin revealed no evidence of significant rashes, suspicious appearing nevi or other concerning lesions. Neurologically, the patient is awake and alert and the patient does not have any focal neurological deficit. Cranial nerves are essentially intact. - Labs CBC & Chem 7: 06/09/21 07:07 06/09/21 07:07 Labs: Abnormal Lab Results - Last 24 Hours (Table) 06/11/21 Range/Units 09:07 C-Reactive Protein 3.4 H (<1.0) mg/dL Microbiology - Last 24 Hours (Table) 06/08/21 14:55 Blood Culture - Preliminary Blood No Growth after 48 hours 06/08/21 14:55 Blood Culture - Preliminary Blood No Growth after 48 hours Assessment and Plan Plan: 1 acute COVID 19 related pneumonia in an 75-year-old male patient was currently unvaccinated presenting with past social symptoms, fever, generalized weakness and some shortness of breath and cough. Oxygenation is stable. GI symptoms have settled compared to earlier. The patient is able to tolerate his diet. We'll continue with the same treatment for now. Oxygenation remains stable. Nevertheless, he is very weak and lethargic and he is feeling very much fatigued at this point in time. 2 acute hypoxic respiratory failure currently on 2 L of oxygen to maintain a saturation above 90% 3 diabetes mellitus 4 hypertension 5 hyperlipidemia 6 acute febrile illness secondary to above 7 leukopenia7 leukopenia and lymphopenia, likely secondary to COVID 19 infection. Plan agree on Decadron 6 mg by mouth daily will continue with the Decadron Titrate oxygen flow to maintain a saturation above 90% Continue fluids The pro-calcitonin level is low Awaiting based on LDH level A chest x-ray in a.m. We'll continue to follow
--- NOTE | 2021-06-11 15:15 | P.PN ---
Progress Note - Text Progress Note Date: 06/11/21 Chief Complaint: Short of breath This is a pleasant 75-year-old patient who follows with Dr. Berg. Patient a prior history of diabetes hypertension as lost over 100 pounds. Doesn't take any more medications. Patient's had COVID and recovered about 20 days ago. Patient for 10 days started having nausea cough slight phlegm. Fevers. No headache no diarrhea. Denies body ache. Poor appetite. Loss of smell and taste. Patient become so weak and started to fall. Very poor appetite. She has not taken the COVID vaccine. Admitted with acute COVID 19 pneumonitis, dehydration, loss of smell and taste, acute medical debility. Started on dexamethasone. 06/09/2021: Decreased appetite. Poor taste. Tired. Cough. Short of breath. Laying in bed. 06/10/2021: Feeling a bit better. Tired. Eating some. Requesting Ensure. Sitting at the edge of the bed. Nasal cannula. Shortness of breath. 06/11/2021: Short of breath. Eating about 50%. Tired. On 2 L of nasal cannula. Review of systems: Was done for constitutional, cardiovascular, GI, pulmonary. relevant finding as above Active Medications Acetaminophen (Acetaminophen Tab 325 Mg Tab) 650 mg PO Q6HR PRN PRN Reason: Mild Pain or Fever > 100.5 Al Hydroxide/Mg Hydroxide (Mag Hydrox/Al Hydrox/Simeth 30 Ml Cup) 15 ml PO Q6HR PRN PRN Reason: Indigestion Albuterol Sulfate (Albuterol Hfa Inhaler) 2 puff INHALATION RT-QID [facility] Last Admin: 06/11/21 11:52 Dose: 2 puff Documented by: Alprazolam (Alprazolam 0.25 Mg Tab) 0.25 mg PO Q6HR PRN PRN Reason: Anxiety Calcium Carbonate/Glycine (Calcium Carbonate 500 Mg Chewable) 1,000 mg PO Q4HR PRN PRN Reason: Dyspepsia Cholecalciferol (Cholecalciferol 25 Mcg (1000 Iu) Tablet) 100 mcg PO DAILY [facility] Last Admin: 06/11/21 08:08 Dose: 100 mcg Documented by: Dexamethasone (Dexamethasone 2 Mg Tab) 6 mg PO DAILY [facility] Last Admin: 06/11/21 08:08 Dose: 6 mg Documented by: Enoxaparin Sodium (Enoxaparin 40 Mg/0.4 Ml Syringe) 40 mg SQ DAILY [facility] Last Admin: 06/11/21 08:08 Dose: 40 mg Documented by: Dextrose/Sodium Chloride (Dextrose 5%-1/2ns Iv Soln) 1,000 mls @ 75 mls/hr IV .[id number] [facility] Last Admin: 06/11/21 12:29 Dose: Not Given Documented by: Ibuprofen (Ibuprofen 400 Mg Tab) 400 mg PO Q6HR PRN PRN Reason: Mild Pain or Fever > 100.5 Lactulose (Lactulose 20 Gm/30 Ml Cup) 20 gm PO DAILY PRN PRN Reason: Constipation Loperamide HCl (Loperamide 2 Mg Cap) 2 mg PO Q2HR PRN PRN Reason: Loose Stool Melatonin (Melatonin 3 Mg Tablet) 3 mg PO HS PRN PRN Reason: Insomnia Naloxone HCl (Naloxone 0.4 Mg/Ml 1 Ml Vial) 0.2 mg IV Q2M PRN PRN Reason: Opioid Reversal Ondansetron HCl (Ondansetron 4 Mg/2 Ml Vial) 4 mg IVP Q8HR PRN PRN Reason: Nausea And Vomiting Past medical history to include: Diabetes, hypertension, obesity. Corrected Social history: Patient smoked for about 25 years stopped about 30 years ago. 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 Family history: Reviewed, noncontributory to presentation Physical examination: VITAL SIGNS: 98, 90, 18, 1:30/60, 92% on 2 L GENERAL: , Sitting at the edge of the bed, awake, tired. LUNGS: Respiratory rate increased, PSYCH: Alert and oriented x3; mood and affect tired . NEUROLOGICAL: Cranial nerves grossly intact; no facial asymmetry, moving all 4 limbs Rest of the exam per pulmonary and nursing INVESTIGATIONS, reviewed in the clinical context: June 10: D-dimer 0.51 CRP 3.4 June 09: D-dimer 0.71 June 09: WBC 2.6 hemoglobin 17 platelets 161 potassium 4.5 creatinine 0.83 CRP 7.5 procalcitonin 0.13 White count 2.8 hemoglobin 16.3 platelets 142 lymphocytes 0.6 sodium 133 potassium 4.4 BUN 20 creatinine 0.98 Coronavirus [PCR]: Detected EKG tracing personally reviewed by vt-normal sinus rhythm, 96 Chest x-ray film personally reviewed by me-[portable, poor inspiration]: Possible infiltrates Assessment and plan: -Acute COVID 19 pneumonitis. Symptoms the present from about 10 days prior to presentation. Nonvaccinated against COVID 19. : Slowly improving Dexamethasone 6 mg, vitamin C, vitamin D, zinc. Subcu Lovenox. -Acute hypoxic respiratory failure from COVID 19 pneumonitis: Slow to respond On 2 L nasal cannula -Sepsis from COVID 19 pneumonitis: Better IV fluids -Acute medical debility/asthenia from decreased oral intake and dehydration -Bicytopenia from COVID 19 pneumonitis [low white count, low platelets] Follow CBC -Anosmia, Ageusia from COVID 19 CHOPped diet. Ensure. -Dehydration from decreased fluid intake IV fluids Dexamethasone, vitamin C, vitamin D, zinc. Subcu Lovenox. chopped diet. An Ensure. incentive spirometry.
[2021-06-12] MEDS: DEXTROSE 5%-0.45% NACL 1,000 ML IV SCH (07:52)
[2021-06-12] MEDS: ENOXAPARIN 40 MG/0.4 ML SYRINGE SQ SCH (07:53)
[2021-06-12] MEDS: CHOLECALCIFEROL 25 MCG (1000 IU) TABLET PO SCH (07:53)
[2021-06-12] MEDS: dexAMETHasone 2 MG TAB PO SCH (07:53)
[2021-06-12] MEDS: ALBUTEROL HFA INHALER INHALATION SCH ×4 (08:43→21:54)
--- NOTE | 2021-06-12 09:20 | XR ---
EXAMINATION TYPE: XR chest 1V portable DATE OF EXAM: 06/12/2021 COMPARISON: 06/08/2021 HISTORY: Cough TECHNIQUE: Single frontal view of the chest is obtained. FINDINGS: Diffuse patchy bilateral infiltrate. Small left effusion. No pneumothorax. Heart size norm al. Surgical clips right upper quadrant. Hypertrophic and degenerative change spine. Arthropathy lisa sandoval. IMPRESSION: Stable patchy bilateral infiltrates
--- NOTE | 2021-06-12 16:47 | P.PN ---
Progress Note - Text Progress Note Date: 06/12/21 Chief Complaint: Short of breath This is a pleasant 75-year-old patient who follows with Dr. Berg. Patient a prior history of diabetes hypertension as lost over 100 pounds. Doesn't take any more medications. Patient's had COVID and recovered about 20 days ago. Patient for 10 days started having nausea cough slight phlegm. Fevers. No headache no diarrhea. Denies body ache. Poor appetite. Loss of smell and taste. Patient become so weak and started to fall. Very poor appetite. She has not taken the COVID vaccine. Admitted with acute COVID 19 pneumonitis, dehydration, loss of smell and taste, acute medical debility. Started on dexamethasone. 06/09/2021: Decreased appetite. Poor taste. Tired. Cough. Short of breath. Laying in bed. 06/10/2021: Feeling a bit better. Tired. Eating some. Requesting Ensure. Sitting at the edge of the bed. Nasal cannula. Shortness of breath. 06/11/2021: Short of breath. Eating about 50%. Tired. On 2 L of nasal cannula. 06/12/2021: Some shortness of breath. Some tightness. 2 feels a bit better. On 2 L of nasal cannula. Sitting in the edge of the bed. Review of systems: Was done for constitutional, cardiovascular, GI, pulmonary. relevant finding as above Active Medications Acetaminophen (Acetaminophen Tab 325 Mg Tab) 650 mg PO Q6HR PRN PRN Reason: Mild Pain or Fever > 100.5 Al Hydroxide/Mg Hydroxide (Mag Hydrox/Al Hydrox/Simeth 30 Ml Cup) 15 ml PO Q6HR PRN PRN Reason: Indigestion Albuterol Sulfate (Albuterol Hfa Inhaler) 2 puff INHALATION RT-QID [facility] Last Admin: 06/12/21 12:03 Dose: 2 puff Documented by: Alprazolam (Alprazolam 0.25 Mg Tab) 0.25 mg PO Q6HR PRN PRN Reason: Anxiety Calcium Carbonate/Glycine (Calcium Carbonate 500 Mg Chewable) 1,000 mg PO Q4HR PRN PRN Reason: Dyspepsia Cholecalciferol (Cholecalciferol 25 Mcg (1000 Iu) Tablet) 100 mcg PO DAILY [facility] Last Admin: 11/15/21 07:53 Dose: 100 mcg Documented by: Dexamethasone (Dexamethasone 2 Mg Tab) 6 mg PO DAILY [facility] Last Admin: 06/12/21 07:53 Dose: 6 mg Documented by: Enoxaparin Sodium (Enoxaparin 40 Mg/0.4 Ml Syringe) 40 mg SQ DAILY [facility] Last Admin: 06/12/21 07:53 Dose: 40 mg Documented by: Ibuprofen (Ibuprofen 400 Mg Tab) 400 mg PO Q6HR PRN PRN Reason: Mild Pain or Fever > 100.5 Lactulose (Lactulose 20 Gm/30 Ml Cup) 20 gm PO DAILY PRN PRN Reason: Constipation Loperamide HCl (Loperamide 2 Mg Cap) 2 mg PO Q2HR PRN PRN Reason: Loose Stool Melatonin (Melatonin 3 Mg Tablet) 3 mg PO HS PRN PRN Reason: Insomnia Naloxone HCl (Naloxone 0.4 Mg/Ml 1 Ml Vial) 0.2 mg IV Q2M PRN PRN Reason: Opioid Reversal Ondansetron HCl (Ondansetron 4 Mg/2 Ml Vial) 4 mg IVP Q8HR PRN PRN Reason: Nausea And Vomiting Past medical history to include: Diabetes, hypertension, obesity. Corrected Social history: Patient smoked for about 25 years stopped about 30 years ago. 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 Family history: Reviewed, noncontributory to presentation Physical examination: VITAL SIGNS: 97.4, 77, 17, 165 H2O, 95% on 2 L GENERAL: , Sitting at the edge of the bed, awake, tired. LUNGS: Respiratory rate increased, PSYCH: Alert and oriented x3; mood and affect tired . NEUROLOGICAL: Cranial nerves grossly intact; no facial asymmetry, moving all 4 limbs Rest of the exam per pulmonary and nursing INVESTIGATIONS, reviewed in the clinical context: June 11: D-dimer 0.51 June 09: D-dimer 0.71 June 09: WBC 2.6 hemoglobin 17 platelets 161 potassium 4.5 creatinine 0.83 CRP 7.5 procalcitonin 0.13 White count 2.8 hemoglobin 16.3 platelets 142 lymphocytes 0.6 sodium 133 potassium 4.4 BUN 20 creatinine 0.98 Coronavirus [PCR]: Detected EKG tracing personally reviewed by me-normal sinus rhythm, 96 Chest x-ray film personally reviewed by me-[portable, poor inspiration]: Possible infiltrates Assessment and plan: -Acute COVID 19 pneumonitis. Symptoms the present from about 10 days prior to presentation. Nonvaccinated against COVID 19. : Slowly improving Dexamethasone 6 mg, vitamin C, vitamin D, zinc. Subcu Lovenox. -Acute hypoxic respiratory failure from COVID 19 pneumonitis: Bedtime On 2 L nasal cannula -Sepsis from COVID 19 pneumonitis: Better IV fluids -Acute medical debility/asthenia from decreased oral intake and dehydration -Bicytopenia from COVID 19 pneumonitis [low white count, low platelets]: Better Follow CBC -Anosmia, Ageusia from COVID 19 CHOPped diet. Ensure. -Dehydration from decreased fluid intake IV fluids Dexamethasone, continue current medication. Discussed with patient.. Increase activity. Follow-up with pulmonary.
--- NOTE | 2021-06-12 18:16 | P.PN ---
Subjective Progress Note Date: 06/12/21 Principal diagnosis: Acute COVID-19 pneumonia 75-year-old male patient, hospitalized for COVID 19 related pneumonia. The patient started having symptoms approximately 10 days ago and he had some cough and slight shortness of breath in addition to nausea. He was having diminished appetite and he lost his sense of taste and smell. He became became progressively more weak and for that reason the end up coming to the hospital. The patient is a unvaccinated individual. In the ED, the patient had a temperature of 101.1 and the initial pulse ox was 92%. The patient was placed on 2 L of oxygen by nasal cannula to maintain a saturation of 93%. He was given IV fluids and Tylenol. He was also started on Decadron. COVID 19 testing was positive in the emergency department. The patient had a chest x-ray that showed multifocal and confluent mid and lower lobe pulmonary opacities consistent with COVID 19 related pneumonia. The patient was hospitalized accordingly. The patient's white cell count is at 2.6 with a hemoglobin of 17 and a lymphocyte count of 0.48. The blood work and electrodes are all within normal limits. The CRP level is at 7.5, LDH is pending, troponins are negative, pro-calcitonin level is at 0.12. On 06/10/2021, the patient is still on 2 L of oxygen by nasal cannula. His extensive and coarse crackles in the mid and lower lung talbert bilaterally. He was quite lethargic yesterday. This morning, he feels a bit more energetic. His overall very much fatigued and tired. Labs are still pending for now. His white cell count from yesterday was 2.66. D-dimer came back at 0.7. His pro- calcitonin level was at 0.13. He remains on Decadron. He is also on Lovenox for DVT prophylaxis. He is receiving D5 half-normal saline today to 125 mL an hour. No other significant events overnight. He is able to tolerate his diet. No nausea. No vomiting. No emesis. 2020, the patient remains on 2 L of oxygen by nasal cannula. The patient was Hospital as for COVID 19 early pneumonia. Symptoms started a previous 10 days prior to him coming into the hospital. For now, the patient has a d-dimer of 0.5. Rest of the inflammatory markers show a CRP level which is down to 3.4. LDH level is still pending for now. Pro-calcitonin level was at 0.1 times respectively. He is afebrile. He is hemodynamically stable on 2 L of oxygen with a pulse ox of 91%. White cell count was at a nonelevated at 2.6. Hemoglobin was at 17. His current treatment include a combination of Decadron this milligrams daily and Lovenox 40 mg subcu on a daily basis. On 06/12/2001 patient seen in follow-up on medical surgical floor. He is awake and alert, in no acute distress, he is on 2 L of oxygen pulse ox is 92%, looks comfortable, he is on point and was given a rate of 75 ML per hour. Reports some mild cough, no phlegm production, overall feeling weak, but no acute distress. No fever or chills, vital signs have been stable, no complaint of lena st discomfort. Chest x-ray today showing stable patchy bilateral infiltrates. Patient remains on Decadron 6 mg daily, Lovenox 40 mg daily. Patient is voiding, and he states that his GI symptoms are improving. No new labs today, his last d-dimer from yesterday was 0.51, LDH was 648, and CRP was improving and is down to 3.4. 2 sets of pro-calcitonin were negative at 0.12, and 0.13 Objective - Vital Signs Vital signs: Vital Signs Temp 97.4 F L 06/12/21 14:00 Pulse 77 06/12/21 14:00 Resp 17 06/12/21 14:00 BP 165/82 06/12/21 14:00 Pulse Ox 95 06/12/21 14:00 Intake & Output 06/11/21 06/12/21 06/12/21 18:59 06:59 18:59 Intake Total 900 Balance 900 Intake: Intake, IV Titration 900 Amount Dextrose 5%-0.45% NaCl 1, 900 000 ml @ 75 mls/hr IV . [id number] [facility] Rx#:[id number] Other: Voiding Method Toilet # Voids 3 2 3 - Exam GENERAL EXAM: Alert, very pleasant, 75-year-old white male, on 2 L of oxygen w ith a pulse ox of 95%, resting comfortably in bed, overall appears weak, but no acute respiratory difficulty noted comfortable in no apparent distress. HEAD: Normocephalic/atraumatic. EYES: Normal reaction of pupils, equal size. Conjunctiva pink, sclera white. NOSE: Clear with pink turbinates. THROAT: No erythema or exudates. NECK: No masses, no JVD, no thyroid enlargement, no adenopathy. CHEST: No chest wall deformity. Symmetrical expansion. LUNGS: Equal air entry with bilateral crackles CVS: Regular rate and rhythm, normal S1 and S2, no gallops, no murmurs, no rubs ABDOMEN: Soft, nontender. No hepatosplenomegaly, normal bowel sounds, no guarding or rigidity. EXTREMITIES: No clubbing, no edema, no cyanosis, 2+ pulses and upper and lower extremities. MUSCULOSKELETAL: Muscle strength and tone normal. SPINE: No scoliosis or deformity SKIN: No rashes CENTRAL NERVOUS SYSTEM: Alert and oriented -3. No focal deficits, tone is normal in all 4 extremities. PSYCHIATRIC: Alert and oriented -3. Appropriate affect. Intact judgment and insight. - Labs CBC & Chem 7: 06/09/21 07:07 06/09/21 07:07 Labs: Microbiology - Last 24 Hours (Table) 06/08/21 14:55 Blood Culture - Preliminary Blood No Growth after 96 hours 06/08/21 14:55 Blood Culture - Preliminary Blood No Growth after 96 hours Assessment and Plan Plan: Assessment: #1. Acute COVID-19 related pneumonia. Patient is an unvaccinated individual, resented with symptoms of fever, generalized weakness, shortness of breath, cough. #2. GI symptoms Including diminished appetite, fatigue #3. Diabetes mellitus type 2 #4. Hypertension #5. Hyperlipidemia Plan: Continue current medical treatment Continue IV hydration Continue current dose Decadron and Lovenox No worsening dyspnea or hypoxia GI symptoms also seem to to be stable and improved We'll continue to follow We'll add COVID-19 vitamins I performed a history & physical examination of the patient and discussed their management with my nurse practitioner, Amairani Jolley. I reviewed the nurse practitioner's note and agree with the documented findings and plan of care. Lung sounds are positive for diminished breath sounds throughout the lung talbert. The findings and the impression was discussed with the patient. I attest to the documentation by the nurse practitioner. Time with Patient: Less than 30
[2021-06-12] MEDS: ZINC SULFATE 220 MG CAP PO SCH (19:21)
[2021-06-12] MEDS: ASCORBIC ACID 500 MG TAB PO SCH (21:57)
[2021-06-13] MEDS: ALBUTEROL HFA INHALER INHALATION SCH ×2 (08:32→12:06)
[2021-06-13] MEDS: ZINC SULFATE 220 MG CAP PO SCH (08:33)
[2021-06-13] MEDS: ENOXAPARIN 40 MG/0.4 ML SYRINGE SQ SCH (08:33)
[2021-06-13] MEDS: CHOLECALCIFEROL 25 MCG (1000 IU) TABLET PO SCH (08:33)
[2021-06-13] MEDS: ASCORBIC ACID 500 MG TAB PO SCH (08:33)
[2021-06-13] MEDS: dexAMETHasone 2 MG TAB PO SCH (08:33)
[2021-06-13 11:12] VITALS: BP 111/70; PULSE 90; RESP 18; TEMP 97.8
--- NOTE | 2021-06-13 12:15 | P.PN ---
Subjective Progress Note Date: 06/13/21 Principal diagnosis: Acute COVID-19 pneumonia 75-year-old male patient, hospitalized for COVID 19 related pneumonia. The patient started having symptoms approximately 10 days ago and he had some cough and slight shortness of breath in addition to nausea. He was having diminished appetite and he lost his sense of taste and smell. He became became progressively more weak and for that reason the end up coming to the hospital. The patient is a unvaccinated individual. In the ED, the patient had a temperature of 101.1 and the initial pulse ox was 92%. The patient was placed on 2 L of oxygen by nasal cannula to maintain a saturation of 93%. He was given IV fluids and Tylenol. He was also started on Decadron. COVID 19 testing was positive in the emergency department. The patient had a chest x-ray that showed multifocal and confluent mid and lower lobe pulmonary opacities consistent with COVID 19 related pneumonia. The patient was hospitalized accordingly. The patient's white cell count is at 2.6 with a hemoglobin of 17 and a lymphocyte count of 0.48. The blood work and electrodes are all within normal limits. The CRP level is at 7.5, LDH is pending, troponins are negative, pro-calcitonin level is at 0.12. On 06/10/2021, the patient is still on 2 L of oxygen by nasal cannula. His extensive and coarse crackles in the mid and lower lung talbert bilaterally. He was quite lethargic yesterday. This morning, he feels a bit more energetic. His overall very much fatigued and tired. Labs are still pending for now. His white cell count from yesterday was 2.66. D-dimer came back at 0.7. His pro- calcitonin level was at 0.13. He remains on Decadron. He is also on Lovenox for DVT prophylaxis. He is receiving D5 half-normal saline today to 125 mL an hour. No other significant events overnight. He is able to tolerate his diet. No nausea. No vomiting. No emesis. 2020, the patient remains on 2 L of oxygen by nasal cannula. The patient was Hospital as for COVID 19 early pneumonia. Symptoms started a previous 10 days prior to him coming into the hospital. For now, the patient has a d-dimer of 0.5. Rest of the inflammatory markers show a CRP level which is down to 3.4. LDH level is still pending for now. Pro-calcitonin level was at 0.1 times respectively. He is afebrile. He is hemodynamically stable on 2 L of oxygen with a pulse ox of 91%. White cell count was at a nonelevated at 2.6. Hemoglobin was at 17. His current treatment include a combination of Decadron this milligrams daily and Lovenox 40 mg subcu on a daily basis. On 06/12/2021 patient seen in follow-up on medical surgical floor. He is awake and alert, in no acute distress, he is on 2 L of oxygen pulse ox is 92%, looks comfortable, he is on point and was given a rate of 75 ML per hour. Reports some mild cough, no phlegm production, overall feeling weak, but no acute distress. No fever or chills, vital signs have been stable, no complaint of lena st discomfort. Chest x-ray today showing stable patchy bilateral infiltrates. Patient remains on Decadron 6 mg daily, Lovenox 40 mg daily. Patient is voiding, and he states that his GI symptoms are improving. No new labs today, his last d-dimer from yesterday was 0.51, LDH was 648, and CRP was improving and is down to 3.4. 2 sets of pro-calcitonin were negative at 0.12, and 0.13 On 06/13/2021 patient seen in follow-up on medical surgical floor. He is awake and alert, in no acute distress, breathing comfortably, he is currently on 2 L of oxygen pulse ox is 92%, no fever or chills, vital signs have been stable. His only complaint is that he is not able to sleep at night. No worsening dyspnea, patient has been ambulating in the room, tolerating activity well, appears generally fatigued, however has been able to ambulate to the bathroom, he is currently sitting up on the edge of the bed, reports no acute distress. No new labs today. Yesterday's chest x-ray showing stable patchy bilateral infiltrates. Patient continues on Decadron 6 migraine daily, prophylactic dose Lovenox 40 mg, he denies any nausea vomiting or diarrhea, and patient also continues on COVID-19 vitamins. no acute events overnight. Objective - Vital Signs Vital signs: Vital Signs Temp 97.8 F 06/13/21 10:00 Pulse 90 06/13/21 10:00 Resp 18 06/13/21 10:00 BP 111/70 06/13/21 10:00 Pulse Ox 92 L 06/13/21 10:00 Intake & Output 06/12/21 06/13/21 06/13/21 18:59 06:59 18:59 Other: Voiding Method Toilet # Voids 3 5 - Exam GENERAL EXAM: Alert, very pleasant, 75-year-old white male, on 2 L of oxygen with a pulse ox of 95%, resting comfortably in bed, overall appears weak, but no acute respiratory difficulty noted comfortable in no apparent distress. HEAD: Normocephalic/atraumatic. EYES: Normal reaction of pupils, equal size. Conjunctiva pink, sclera white. NOSE: Clear with pink turbinates. THROAT: No erythema or exudates. NECK: No masses, no JVD, no thyroid enlargement, no adenopathy. CHEST: No chest wall deformity. Symmetrical expansion. LUNGS: Equal air entry with bilateral crackles CVS: Regular rate and rhythm, normal S1 and S2, no gallops, no murmurs, no rubs ABDOMEN: Soft, nontender. No hepatosplenomegaly, normal bowel sounds, no guarding or rigidity. EXTREMITIES: No clubbing, no edema, no cyanosis, 2+ pulses and upper and lower extremities. MUSCULOSKELETAL: Muscle strength and tone normal. SPINE: No scoliosis or deformity SKIN: No rashes CENTRAL NERVOUS SYSTEM: Alert and oriented -3. No focal deficits, tone is normal in all 4 extremities. PSYCHIATRIC: Alert and oriented -3. Appropriate affect. Intact judgment and insight. - Labs CBC & Chem 7: 06/09/21 07:07 06/09/21 07:07 Labs: Microbiology - Last 24 Hours (Table) 06/08/21 14:55 Blood Culture - Preliminary Blood No Growth after 96 hours 06/08/21 14:55 Blood Culture - Preliminary Blood No Growth after 96 hours Assessment and Plan Plan: Assessment: #1. Acute COVID-19 related pneumonia. Patient is an unvaccinated individual, presented with symptoms of fever, generalized weakness, shortness of breath, cough. #2. GI symptoms Including diminished appetite, fatigue #3. Diabetes mellitus type 2 #4. Hypertension #5. Hyperlipidemia Plan: Clinically patient seems to be stable from pulmonary perspective He is currently on 2 L of oxygen pulse ox of 92% No fever or chills Vital signs have been stable No worsening of his dyspnea or hypoxia Stable for discharge home from pulmonary perspective Obtain home oxygen assessment Complete a total of 10 day course of Decadron Continue COVID-19 vitamins Outpatient follow-up with Dr. Ryan in the office in 2 weeks I performed a history & physical examination of the patient and discussed their management with my nurse practitioner, Amairani Jolley. I reviewed the nurse practitioner's note and agree with the documented findings and plan of care. Lung sounds are positive for diminished breath sounds throughout the lung talbert. The findings and the impression was discussed with the patient. I attest to the documentation by the nurse practitioner. Time with Patient: Less than 30
--- NOTE | 2021-06-13 18:10 | P.DS ---
Providers Date of admission: 06/08/21 17:06 Expected date of discharge: 06/13/21 Attending physician: Ankit Salinas Consults: 06/09/21 15:11 Consult Physician Routine Consulting Provider: Navjot Ryan Consult Reason/Comments: COVID 19 Do you want consulting provider notified?: Yes Primary care physician: Manolo Berg [facility] Course: Chief Complaint: Short of breath This is a pleasant 75-year-old patient who follows with Dr. Berg. Patient a prior history of diabetes hypertension as lost over 100 pounds. Doesn't take any more medications. Patient's had COVID and recovered about 20 days ago. Patient for 10 days started having nausea cough slight phlegm. Fevers. No headache no diarrhea. Denies body ache. Poor appetite. Loss of smell and taste. Patient become so weak and started to fall. Very poor appetite. She has not taken the COVID vaccine. Admitted with acute COVID 19 pneumonitis, dehydration, loss of smell and taste, acute medical debility. Started on dexamethasone. Patient's appetite slowly picked up. use incentive spirometry. Today: Doing better. Started to walk about in the room. Be discharged on 3 L of nasal cannula. Care was discussed with the patient. Questions answered. Use incentive spirometry. Follow-up with pulmonary. Discussion and discharge planning more than 35 minutes Consultation: Dr. Momin and partners from pulmonary Past medical history to include: Diabetes, hypertension, obesity. Corrected Social history: Patient smoked for about 25 years stopped about 30 years ago. 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 Family history: Reviewed, noncontributory to presentation Physical examination: VITAL SIGNS: 97.8, 90, 18, 111/70, 92% on 2 L GENERAL: , Comfortable awake, tired. LUNGS: Respiratory rate increased, PSYCH: Alert and oriented x3; mood and affect tired . NEUROLOGICAL: Cranial nerves grossly intact; no facial asymmetry, moving all 4 limbs Rest of the exam per pulmonary and nursing INVESTIGATIONS, reviewed in the clinical context: June 11: D-dimer 0.51 June 09: D-dimer 0.71 June 09: WBC 2.6 hemoglobin 17 platelets 161 potassium 4.5 creatinine 0.83 CRP 7.5 procalcitonin 0.13 White count 2.8 hemoglobin 16.3 platelets 142 lymphocytes 0.6 sodium 133 potassium 4.4 BUN 20 creatinine 0.98 Coronavirus [PCR]: Detected EKG tracing personally reviewed by me-normal sinus rhythm, 96 Chest x-ray film personally reviewed by me-[portable, poor inspiration]: Possible infiltrates Assessment and plan: -Acute COVID 19 pneumonitis. Symptoms the present from about 10 days prior to presentation. Nonvaccinated against COVID 19. : Better Dexamethasone 6 mg, vitamin C, vitamin D, zinc. Subcu Lovenox. Discharged on prednisone taper. -Acute hypoxic respiratory failure from COVID 19 pneumonitis: Bedtime Discharge on 3 L of nasal cannula. -Sepsis from COVID 19 pneumonitis: Better IV fluids -Acute medical debility/asthenia from decreased oral intake and dehydration -Bicytopenia from COVID 19 pneumonitis [low white count, low platelets]: Better Follow CBC -Anosmia, [place] from COVID 19 CHOPped diet. Ensure. -Dehydration from decreased fluid intake IV fluids Disposition: Home Plan - Discharge Summary Discharge Rx Participant: No New Discharge Prescriptions: New Zinc Sulfate [Orazinc] 220 mg PO DAILY #30 cap Albuterol Inhaler [Ventolin Hfa Inhaler] 2 puff INHALATION RT-QID #1 gm Ascorbic Acid [Vitamin C] 500 mg PO BID #60 tab Cholecalciferol [Vitamin D3 (25 Mcg = 1000 Iu)] 100 mcg PO DAILY #120 tablet predniSONE 10 mg PO DAILY #30 tab Budesonide/Formoterol Fumarate [Symbicort 160-4.5 Mcg Inhaler] 1 puff I NHALATION BID #10.2 gm Continue Ibuprofen [Motrin Ib] 800 mg PO Q8H PRN PRN Reason: Pain Or Fever > 100.5 Discontinued Acetaminophen Tab [Tylenol Tab] 1,000 mg PO Q6HR PRN PRN Reason: Pain Or Fever > 100.5 Discharge Medication List Ibuprofen [Motrin Ib] 800 mg PO Q8H PRN 06/08/21 [History] Albuterol Inhaler [Ventolin Hfa Inhaler] 2 puff INHALATION RT-QID #1 gm 06/13/21 [Rx] Ascorbic Acid [Vitamin C] 500 mg PO BID #60 tab 06/13/21 [Rx] Budesonide/Formoterol Fumarate [Symbicort 160-4.5 Mcg Inhaler] 1 puff INHALATION BID #10.2 gm 06/13/21 [Rx] Cholecalciferol [Vitamin D3 (25 Mcg = 1000 Iu)] 100 mcg PO DAILY #120 tablet 06/13/21 [Rx] Zinc Sulfate [Orazinc] 220 mg PO DAILY #30 cap 06/13/21 [Rx] predniSONE 10 mg PO DAILY #30 tab 06/13/21 [Rx] Follow up Appointment(s)/Referral(s): Manolo Berg DO [Primary Care Provider] - 06/23/21 10:00 am [facility] [NON-STAFF] - As Needed (oxygen) Navjot Ryan MD [STAFF PHYSICIAN] - 07/11/21 2:30 pm (With Kristin) Patient Instructions/Handouts: Albuterol (By breathing), Prednisone (By mouth), Zinc Sulfate (By mouth), Ascorbic Acid (By mouth), Vitamin D (By mouth), Budesonide/Formoterol (By breathing), Coronavirus Disease 2019 (COVID-19) Discharge Disposition: HOME SELF-CARE
== END 2021-06-13 14:03 | disposition home or self-care (01) | DRG 871 ==
LOC: EC 12:46 → 4SSUR 17:06
PROVIDERS: ADMIT Hospitalist; ATTEND Hospitalist
PROC: 3E0333Z Introduction of Anti-inflammatory into Peripheral Vein, Percutaneous Approach (ICD-10-PCS; principal; 2021-06-08)
DX: A41.89 Other specified sepsis (principal); U07.1 COVID-19; J12.82 Pneumonia due to coronavirus disease 2019; J96.01 Acute respiratory failure with hypoxia; D69.6 Thrombocytopenia, unspecified; E78.5 Hyperlipidemia, unspecified; E86.0 Dehydration; E11.9 Type 2 diabetes mellitus without complications; I10 Essential (primary) hypertension; Z79.51 Long term (current) use of inhaled steroids; Z87.891 Personal history of nicotine dependence; Z88.0 Allergy status to penicillin
CPT/HCPCS: 36415; 71045; 80048; 80053; 83605; 83615; 83735; 84145; 84484; 85025; 85379; 85610; 85730; 86140; 87040; 87635; 93005; 94640; 94760; 96360; 99285